=== PATIENT | female | born 1985 | race Caucasian/White ===

== ENCOUNTER 2022-01-11 19:24 | Inpatient (IN) | payer OTHER, SELFPAY ==
[2022-01-11 19:34] VITALS: BP 128/76; PULSE 83; O2SAT 97
--- NOTE | 2022-01-11 19:41 | ED_ITS ---
HPI - Psych General Chief Complaint: Psychiatric Symptoms Stated Complaint: SI Time Seen by Provider: 01/11/22 21:01 Source: patient and EMS Mode of arrival: EMS Limitations: no limitations History of Present Illness HPI Narrative: 36-year-old female presents via EMS for suicidal ideation. patient has had multiple stressors that have exacerbated her depression. Patient presented to Urgent Care and reported that she was suicidal and was transported to this facility via EMS for evaluation. MD complaint: suicidal ideation and feels depressed Onset (ago): unknown Duration: constant History of same: Yes (Has not presented to this facility in the past) Relieving factors: none Exacerbating factors: none Context: significant life stressor Associated psychiatric symptoms: depression and suicidal ideation Associated symptoms: denies other symptoms Treatments prior to arrival: none If self harm: admits thoughts of self harm and has plan Related Data Allergies Allergy/AdvReac Type Severity Reaction Status Date / Time No Known Allergies Allergy Verified 01/11/22 19:41 Review of Systems Review of Systems: Constitutional: No Fever, No Chills ENT/Mouth: No Ear Pain, No Nasal Congestion, No sore throat Eyes: No Eye Pain, No Swelling, No Redness Cardiovascular: No Chest Pain, No SOB Respiratory: No Cough, No Sputum, No Dyspnea Gastrointestinal: No Nausea, No Vomiting, No Diarrhea, No Hematochezia, No Melena Genitourinary: No Dysuria, No Urinary Frequency, No Hematuria Musculoskeletal: No Myalgias Skin: No Skin Lesions, No rash Neuro: No Weakness, No Numbness, No Paresthesias, No Dizziness, No Headache Psych: positive Anxiety, positive Depression, positive SI Heme/Lymph: No Lymphadenopathy Endocrine: No Polyuria, No Polydipsia Yes all other systems are reviewed and are negative [facility] Past Medical History Attestation statement: The following information was validated with the patient. Source: old records reviewed Social History Social History Advance Directives: No Patient : No Physical Exam Vital Signs: Vital Signs: Last Vital Signs Temp 97.6 F 01/11/22 19:56 Pulse 76 01/11/22 19:56 Resp 19 01/11/22 19:56 BP 149/91 H 01/11/22 19:56 Pulse Ox 100 01/11/22 19:56 BMI result Body Mass Index 40.8 Appearance: Alert. Oriented X3. Moderate emotional distress. Eyes: Pupils equal, round and reactive to light. Sclera nonicteric. ENT: Pharynx normal. Neck: Normal inspection. Neck supple. CVS: Normal heart rate and rhythm. Pulses normal. Respiratory: No respiratory distress. Breath sounds normal. Abdomen: Soft and nontender. Skin: Skin warm and dry. Normal skin color. Normal skin turgor. Extremities: No lower extremity edema. Gait well-balanced well coordinated. Neuro: No motor deficit. No sensory deficit. Cranial nerves 2-12 intact. Course Course Course Narrative: 36-year-old female presents via EMS for suicidal ideation. States that she feels overwhelmed with work, relationship complications, money, recently moved from [place] to [place]. Patient has not presented to this facility in the past, will order labs, crisis care team consult and COVID testing. 21:02 patient medically cleared. Care team consult and place. 22:17 patient will be section 12 bed search for suicidal ideation with multiple plans. Physician observation at this time. MDM - Psych Differential Diagnosis Differential diagnosis: Likely suicidal ideation, depression, acute anxiety, post-traumatic stress disorder and mood disorder Medical Records Attestation: I reviewed the patient's medical records. Lab Data Attestation: I reviewed the patient's lab results. Result diagrams: 01/11/22 20:20 01/11/22 20:20 Labs: Lab Results 01/11/22 01/11/22 01/11/22 Range/Units 20:01 20:01 20:01 WBC (4.8-10.8) X10*3/uL RBC (4.20-5.50) X10*6/uL Hgb (12.0-16.0) g/dl Hct (37.0-47.0) % MCV (80.0-98.0) fL MCH (27.0-33.0) pg MCHC (31.0-35.0) g/dl RDW (11.0-16.0) % Plt Count (160-400) X10*3/uL MPV (9.4-12.3) fL Immature Gran % (Auto) (0.0-0.4) % Neut % (Auto) (45-73) % Lymph % (Auto) (20-40) % Bonner % (Auto) (2-11) % Eos % (Auto) (0-4) % Baso % (Auto) (0-2) % Lymph # (Auto) (1.2-4.9) X10*3/uL Bonner # (Auto) (0.1-1.2) X10*3/uL Eos # (Auto) (0.0-0.4) X10*3/uL Baso # (Auto) (0.0-0.2) X10*3/uL Abs Immat Gran (auto) (0.00-0.03) X10*3/uL Absolute Neuts (auto) (2.0-8.3) x10*3/uL Absolute Nucleated RBC (0.0-0.012) X10*3/uL Nucleated RBC % (auto) (0.0-0.2) /100WBC Sodium (135-145) mmol/L Potassium (3.3-5.1) mmol/L Chloride (96-108) mmol/L Carbon Dioxide (22-29) mmol/L Anion Gap (12-20) BUN (9-16) mg/dL Creatinine (0.5-1.4) mg/dL Estim Creat Clear Calc Estimated GFR Random Glucose (60-115) mg/dL Calcium (8.4-10.2) mg/dL Total Bilirubin (0.0-1.0) mg/dL AST (5-31) U/L ALT (0-31) U/L Alkaline Phosphatase (39-117) U/L Total Protein (6.5-8.0) g/dL Albumin (3.5-5.0) g/dL Urine Test NEGATIVE (NEGATIVE) Urine Opiates Screen Not Detected (Not Detect) Urine Fentanyl Screen Not Detected (Not Detect) Ur Barbiturates Screen Not Detected (Not Detect) Ur Phencyclidine Scrn Not Detected (Not Detect) Ur Amphetamines Screen Not Detected (Not Detect) U Benzodiazepines Scrn Not Detected (Not Detect) Urine Cocaine Screen Not Detected (Not Detect) U Marijuana (THC) Screen Not Detected (Not Detect) Ethyl Alcohol mg/dL COVID-19 (JAIMEE) Negative (Negative) COVID-19 Clin Com See Note 01/11/22 01/11/22 01/11/22 Range/Units 20:20 20:20 20:20 WBC 13.2 H (4.8-10.8) X10*3/uL RBC 4.52 (4.20-5.50) X10*6/uL Hgb 13.8 (12.0-16.0) g/dl Hct 40.6 (37.0-47.0) % MCV 89.8 (80.0-98.0) fL MCH 30.5 (27.0-33.0) pg MCHC 34.0 (31.0-35.0) g/dl RDW 12.6 (11.0-16.0) % Plt Count 297 (160-400) X10*3/uL MPV 8.9 L (9.4-12.3) fL Immature Gran % (Auto) 0.7 H (0.0-0.4) % Neut % (Auto) 68.2 (45-73) % Lymph % (Auto) 23.7 (20-40) % Bonner % (Auto) 5.9 (2-11) % Eos % (Auto) 1.0 (0-4) % Baso % (Auto) 0.5 (0-2) % Lymph # (Auto) 3.1 (1.2-4.9) X10*3/uL Bonner # (Auto) 0.8 (0.1-1.2) X10*3/uL Eos # (Auto) 0.1 (0.0-0.4) X10*3/uL Baso # (Auto) 0.1 (0.0-0.2) X10*3/uL Abs Immat Gran (auto) 0.09 H (0.00-0.03) X10*3/uL Absolute Neuts (auto) 9.0 H (2.0-8.3) x10*3/uL Absolute Nucleated RBC 0.000 (0.0-0.012) X10*3/uL Nucleated RBC % (auto) 0.0 (0.0-0.2) /100WBC Sodium 139 (135-145) mmol/L Potassium 4.8 (3.3-5.1) mmol/L Chloride 102 (96-108) mmol/L Carbon Dioxide 28 (22-29) mmol/L Anion Gap 14 (12-20) BUN 7 L (9-16) mg/dL Creatinine 0.78 (0.5-1.4) mg/dL Estim Creat Clear Calc 112.0 Estimated GFR > 60 Random Glucose 93 (60-115) mg/dL Calcium 9.7 (8.4-10.2) mg/dL Total Bilirubin 0.6 (0.0-1.0) mg/dL AST 21 (5-31) U/L ALT 29 (0-31) U/L Alkaline Phosphatase 133 H (39-117) U/L Total Protein 7.3 (6.5-8.0) g/dL Albumin 4.1 (3.5-5.0) g/dL Urine Test (NEGATIVE) Urine Opiates Screen (Not Detect) Urine Fentanyl Screen (Not Detect) Ur Barbiturates Screen (Not Detect) Ur Phencyclidine Scrn (Not Detect) Ur Amphetamines Screen (Not Detect) U Benzodiazepines Scrn (Not Detect) Urine Cocaine Screen (Not Detect) U Marijuana (THC) Screen (Not Detect) Ethyl Alcohol < 10 mg/dL COVID-19 ([facility]IMEE) (Negative) COVID-19 Clin Com Discharge Plan Discharge Clinical Impression: Depressive disorder, Suicidal intent Patient Disposition: Still a Patient
[2022-01-11 19:56] VITALS: BP 149/91; PULSE 76; RESP 19; TEMP 36.4; O2SAT 100; BMI 40.8
[2022-01-11 20:18] LABS: UPreg QC Valid YES; Urine Pregnancy NEGATIVE (NEGATIVE)
[2022-01-11 20:22] LABS: Amphetamine Screen Urine Not Detected (Not Detect); Barbiturates, Urine Not Detected (Not Detect); Benzodiazepines Screen Urine Not Detected (Not Detect); Cannabinoid Screen Urine Not Detected (Not Detect); Cocaine Screen Urine Not Detected (Not Detect); Fentanyl, urine Not Detected (Not Detect); Opiate Screen Urine Not Detected (Not Detect); Phencyclidine Screen Urine Not Detected (Not Detect)
[2022-01-11 20:23] LABS: COVID-19 Test Negative (Negative)
[2022-01-11 20:24] LABS: MANUAL DIFF FLAG NO
[2022-01-11 20:27] LABS: Basophils Absolute Auto 0.1 X10*3/uL (0.0-0.2); Basophils Percent Auto 0.5 % (0-2); Eosinophils Absolute Auto 0.1 X10*3/uL (0.0-0.4); Hematocrit 40.6 % (37.0-47.0); Hemoglobin 13.8 g/dl (12.0-16.0); Imm Gran Abs Auto 0.09 X10*3/uL (0.00-0.03); Imm Gran Pct Auto 0.7 % (0.0-0.4); Lymphocytes Absolute Auto 3.1 X10*3/uL (1.2-4.9); Lymphocytes Percent Auto 23.7 % (20-40); Mean Corpuscular Hemoglobin 30.5 pg (27.0-33.0); Mean Corpuscular Volume 89.8 fL (80.0-98.0); Mean Platelet Volume 8.9 fL (9.4-12.3); Monocytes Absolute Auto 0.8 X10*3/uL (0.1-1.2); Monocytes Percent Auto 5.9 % (2-11); Neutrophils Percent Auto 68.2 % (45-73); Platelet Count 297 X10*3/uL (160-400); Red Blood Count 4.52 X10*6/uL (4.20-5.50); Red Cell Distribution Width 12.6 % (11.0-16.0); White Blood Count 13.2 X10*3/uL (4.8-10.8)
[2022-01-11 20:47] LABS: Ethanol < 10 mg/dL
[2022-01-11 20:52] LABS: Alanine Aminotransferase 29 U/L (0-31); Albumin Level 4.1 g/dL (3.5-5.0); Alkaline Phosphatase 133 U/L (39-117); Anion Gap 14 (12-20); Aspartate Amino Transferase 21 U/L (5-31); Bilirubin Total 0.6 mg/dL (0.0-1.0); Blood Urea Nitrogen 7 mg/dL (9-16); Calcium 9.7 mg/dL (8.4-10.2); Carbon Dioxide 28 mmol/L (22-29); Chloride 102 mmol/L (96-108); Estimated Glomerular Filt Rate > 60; Glucose Random 93 mg/dL (60-115); Potassium 4.8 mmol/L (3.3-5.1); Sodium 139 mmol/L (135-145); Total Protein 7.3 g/dL (6.5-8.0)
--- NOTE | 2022-01-11 22:10 | PC.NURSE ---
pt seen by care team.
--- NOTE | 2022-01-11 23:44 | MHC.CARE ---
Pt has been accepted for admission to on 01/12.
[2022-01-11] MEDS: Spironolactone 25 MG TABLET 50 MG PO (23:51)
[2022-01-11] MEDS: Gabapentin 100 MG CAPSULE 200 MG PO (23:51)
--- NOTE | 2022-01-12 | ECG_ITS ---
Test Reason : medical clearance Blood Pressure : / mmHG Vent. Rate : 081 BPM Atrial Rate : 081 BPM P-R Int : 142 ms QRS Dur : 082 ms QT Int : 384 ms P-R-T Axes : 043 013 042 degrees QTc Int : 446 ms Normal sinus rhythm Normal ECG No previous ECGs available Referred By: Audrey Rogders Electronically Signed By:Jabari Sinha
[2022-01-12 00:17] VITALS: BP 132/78; PULSE 78; RESP 17; TEMP 37.1; O2SAT 100
[2022-01-12] MEDS: SUMAtriptan succinate 25 MG TABLET PO (09:30)
[2022-01-12] MEDS: Hydroxychloroquine Sulfate 200 MG TABLET PO (09:30)
[2022-01-12] MEDS: Spironolactone 25 MG TABLET 50 MG PO ×2 (09:31→17:15)
[2022-01-12] MEDS: Gabapentin 100 MG CAPSULE 200 MG PO ×3 (09:31→20:20)
--- NOTE | 2022-01-12 11:28 | PHA.MEDREC ---
Pharmacy Consult ? Medication Reconciliation nurse has completed the medication reconciliation.
[2022-01-12] MEDS: DULoxetine HCl 30 MG CAPSULE.DR PO (11:36)
[2022-01-12 12:35] VITALS: BP 131/77; PULSE 90; RESP 18; TEMP 36.4; O2SAT 99
--- NOTE | 2022-01-12 15:47 | P.HPPS_ITS ---
HPI Date of Service: 01/12/22 Chief Complaint: SI Sources of Information: patient interviewed, chart reviewed and crisis/core team assessment reviewed HPI Subjective Notes: Conditional Voluntary Narrative: Ms. Barakat is a 36 year-old woman with hx of autoimmunune condition (lupus and sjorden) and MDD who initially presented to urgent care reporting increased depression, suicidal ideation and was transported on section 12 to [facility]. In the ED, Blank reports increased depression due to multiple stressors including stress at work complicated by physically feeling more fatigued and tired at work, recent argument with partner who lives in [place] and pt sees once a month. Utox was negative. On the unit, Ms. Barakat reports that she moved to [facility] for work leaving partner behind in [place] about one year ago. Maia reports she has struggled with depression on and off for several years. She reports one suicide attempt back in 2018 when in college but reports that she did not disclose to anyone. Pt reports although her father suffers from depression as well she grew up in family that does not believe in mental illness, where depression is seen as character flow and she is expected to snap out of it. 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 She reports to make matter worse her partner, Raheem came to visit her and they had an argument related to partner wanting to try cocaine. Pt endorses feeling worthless, hopeless, overwhelmed, lonely at times. She reports passive suicidal ideation but denies any plan or intent to hurt herself. Past Psychiatric History: Inpatient: none prior OP: none Past trials: gabapentin, cymbalta Suicide attempt: 2018 cutting wrist Medical Evaluation Reviewed: Yes Diagnostics Vital Signs (24Hr): Vital Signs - 24 hr 01/11/22 19:56 01/12/22 00:17 01/12/22 12:35 Temperature 97.6 F 98.7 F 97.5 F Pulse Rate 76 78 90 Respiratory Rate 19 17 18 Blood Pressure 149/91 H 132/78 131/77 Pulse Oximetry 100 100 99 BMI result Body Mass Index 40.8 Labs Results: 01/11/22 20:20 01/13/22 07:50 Labs: Laboratory Results - last 48 hr 01/11/22 01/11/22 01/11/22 20:01 20:01 20:01 WBC RBC Hgb Hct MCV MCH MCHC RDW Plt Count MPV Immature Gran % (Auto) Neut % (Auto) Lymph % (Auto) Stevens % (Auto) Eos % (Auto) Baso % (Auto) Lymph # (Auto) Stevens # (Auto) Eos # (Auto) Baso # (Auto) Abs Immat Gran (auto) Absolute Neuts (auto) Absolute Nucleated RBC Nucleated RBC % (auto) Sodium Potassium Chloride Carbon Dioxide Anion Gap BUN Creatinine Estim Creat Clear Calc Estimated GFR Random Glucose Calcium Total Bilirubin AST ALT Alkaline Phosphatase Total Protein Albumin Urine Test NEGATIVE Urine Opiates Screen Not Detected Urine Fentanyl Screen Not Detected Ur Barbiturates Screen Not Detected Ur Phencyclidine Scrn Not Detected Ur Amphetamines Screen Not Detected U Benzodiazepines Scrn Not Detected Urine Cocaine Screen Not Detected U Marijuana (THC) Screen Not Detected Ethyl Alcohol COVID-19 ([facility]IMEE) Negative COVID-19 Clin Com See Note 01/11/22 01/11/22 01/11/22 20:20 20:20 20:20 WBC 13.2 H RBC 4.52 Hgb 13.8 Hct 40.6 MCV 89.8 MCH 30.5 MCHC 34.0 RDW 12.6 Plt Count 297 MPV 8.9 L Immature Gran % (Auto) 0.7 H Neut % (Auto) 68.2 Lymph % (Auto) 23.7 Stevens % (Auto) 5.9 Eos % (Auto) 1.0 Baso % (Auto) 0.5 Lymph # (Auto) 3.1 Stevens # (Auto) 0.8 Eos # (Auto) 0.1 Baso # (Auto) 0.1 Abs Immat Gran (auto) 0.09 H Absolute Neuts (auto) 9.0 H Absolute Nucleated RBC 0.000 Nucleated RBC % (auto) 0.0 Sodium 139 Potassium 4.8 Chloride 102 Carbon Dioxide 28 Anion Gap 14 BUN 7 L Creatinine 0.78 Estim Creat Clear Calc 112.0 Estimated GFR > 60 Random Glucose 93 Calcium 9.7 Total Bilirubin 0.6 AST 21 ALT 29 Alkaline Phosphatase 133 H Total Protein 7.3 Albumin 4.1 Urine Test Urine Opiates Screen Urine Fentanyl Screen Ur Barbiturates Screen Ur Phencyclidine Scrn Ur Amphetamines Screen U Benzodiazepines Scrn Urine Cocaine Screen U Marijuana (THC) Screen Ethyl Alcohol < 10 COVID-19 ([facility]IMEE) COVID-19 Clin Com Meds/Allergies Meds Home Medications Acetaminophen (Acetaminophen 325 Mg Tablet) 650 mg PO Q6H PRN PRN Reason: Headache/Pain Mild Scale (1-3) Al Hydroxide/Mg Hydroxide (Magnesium Hydrox/Alum Hydrox 30 Ml Oral.Susp) 30 ml PO Q6H PRN PRN Reason: Heartburn/Nausea Artificial Tears (Artificial Tears 15 Ml Drops) 2 drop EYE-BOTH Q4H PRN PRN Reason: Dry Eyes Last Admin: 01/13/22 11:27 Dose: 2 drop Documented by: Ascorbic Acid (Ascorbic Acid 500 Mg Tablet) 500 mg PO DAILY COUNT INCLUDES THE [facility] Duloxetine HCl (Duloxetine Hcl 30 Mg Capsule.Dr) 90 mg PO DAILY COUNT INCLUDES THE [facility] Gabapentin (Gabapentin 100 Mg Capsule) 200 mg PO TID COUNT INCLUDES THE [facility] Last Admin: 01/13/22 10:15 Dose: 200 mg Documented by: Hydroxychloroquine Sulfate (Hydroxychloroquine Sulfate 200 Mg Tablet) 200 mg PO BEDTIME COUNT INCLUDES THE [facility] Last Admin: 01/12/22 21:57 Dose: Not Given Documented by: Hydroxyzine HCl (Hydroxyzine Hcl 25 Mg Tablet) 25 mg PO Q6H PRN PRN Reason: Anxiety Loratadine (Loratadine 10 Mg Tablet) 10 mg PO DAILY COUNT INCLUDES THE [facility] Lorazepam (Lorazepam 0.5 Mg Tablet) 0.5 mg PO Q4H PRN PRN Reason: Anxiety Magnesium Hydroxide (Milk Of Magnesia 30 Ml Oral.Susp) 30 ml PO DAILY PRN PRN Reason: Constipation Pt Med (Retaine Mgd) 1 each EYE-BOTH ONCE ONE Stop: 01/13/22 20:01 Ondansetron HCl (Ondansetron Odt 4 Mg Tab.Rapdis) 4 mg TRANSLINGU Q6H PRN PRN Reason: Nausea Spironolactone (Spironolactone 25 Mg Tablet) 50 mg PO BID@0900,1700 COUNT INCLUDES THE [facility]; Protocol Last Admin: 01/13/22 10:14 Dose: 50 mg Documented by: Sumatriptan Succinate (Sumatriptan Succinate 50 Mg Tablet) 50 mg PO DAILY MRX1 PRN PRN Reason: Migraine Headache Trazodone HCl (Trazodone Hcl 50 Mg Tablet) 50 mg PO BEDTIME COUNT INCLUDES THE [facility] Vitamin D (Cholecalciferol (Vitamin D3) 25 Mcg Tablet) 125 mcg PO DAILY COUNT INCLUDES THE [facility] Zinc Sulfate (Zinc Sulfate 220 Mg Capsule) 220 mg PO DAILY LYNDSEY Allergies Allergies Allergy/AdvReac Type Severity Reaction Status Date / Time dog dander Allergy Facial Verified 01/12/22 17:04 Swelling grass pollen AdvReac Sneezing Verified 01/12/22 17:04 latex AdvReac Rash Verified 01/11/22 22:39 mold AdvReac Sneezing Verified 01/12/22 17:04 raw tomat Allergy Intermediate Blister Uncoded 01/12/22 17:01 Mental Status Exam Mental Status Exam Narrative: Appearance: casually groomed, fair hygiene in NAD Behavior: cooperative psychomotor:no agitation or retardation noted Speech:clear, normal rate/rhythm/volume, spontaneous Thought process:linear Thought content:no signs of psychosis, overwhelmed by stressors Mood: overwhelmed Affect: congruent, tearful at times SI:passive HI:none VH/AH:none Delusions:none Insight/judgment:fair x 2. Memory/cog: alert, oriented x 3. grossly intact to conversational testing. Assessment & Plan Assessment & Plan (1) MDD (major depressive disorder), recurrent episode, moderate: Status: Acute Code(s): F33.1 - Major depressive disorder, recurrent, moderate Plan Ms. Barakat is a 36 year-old woman with hx of MDD, Lupus and Sjorden who was brought via EMS to [facility] ED after she went to urgent care reporting increase depression and suicidal ideation in context of multiple stressors including argument with partner, work related stress and fatigued due to medical conditions. This is her first inpatient psychiatric admission. We discussed risks, benefits and alternative treatment options. Pt agreed to increase cymbalta to 90mg po daily. PLAN 1. Admit to M3, CV, 15 min checks for safety 2. Increase cymbalta to 90mg po daily, ativan prn for anxiety. 3. Obtain collateral information 4. Aftercare planning. Patient educated on: diagnosis and medication risk/benefits Informed Consent: understands Reason for continued inpatient stay Substantial Risk for: harm to self
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
[2022-01-12] MEDS: traZODone HCL 50 MG TABLET PO (20:20)
[2022-01-12 21:14] VITALS: BP 120/69; PULSE 88; RESP 18; TEMP 36.6; O2SAT 99
[2022-01-13 07:00] VITALS: BMI 40.5
[2022-01-13] MEDS: Artificial Tears 15 ML DROPS 2 DROP EYE-BOTH ×3 (07:04→21:52)
[2022-01-13 09:01] LABS: Estimated Average Glucose 103 mg/dL; Hemoglobin A1c % 5.2 %
[2022-01-13 09:20] LABS: Alanine Aminotransferase 30 U/L (0-31); Albumin Level 4.1 g/dL (3.5-5.0); Alkaline Phosphatase 132 U/L (39-117); Anion Gap 15 (12-20); Aspartate Amino Transferase 19 U/L (5-31); Bilirubin Total 0.8 mg/dL (0.0-1.0); Blood Urea Nitrogen 13 mg/dL (9-16); Calcium 9.9 mg/dL (8.4-10.2); Carbon Dioxide 25 mmol/L (22-29); Chloride 102 mmol/L (96-108); Cholesterol 169 mg/dL; Creatinine Clr Calc Pharmacy 109.2; Estimated Glomerular Filt Rate > 60; Glucose Fasting 106 mg/dL (60-99); HDL Cholesterol 41 mg/dL; LDL Cholesterol Calculated 101 mg/dl; Potassium 4.7 mmol/L (3.3-5.1); Sodium 137 mmol/L (135-145); Total Protein 7.1 g/dL (6.5-8.0); Triglycerides 137 mg/dL
[2022-01-13 09:38] LABS: Thyroid Stimulating Hormone 0.93 uIU/mL (0.32-4.0)
[2022-01-13 09:56] LABS: Vitamin B12 > 2000 pg/mL (200-900)
[2022-01-13] MEDS: Spironolactone 25 MG TABLET 50 MG PO ×2 (10:14→16:24)
[2022-01-13] MEDS: Gabapentin 100 MG CAPSULE 200 MG PO ×3 (10:15→21:54)
[2022-01-13] MEDS: DULoxetine HCl 60 MG CAPSULE.DR PO (10:16)
[2022-01-13 10:20] VITALS: BP 111/77; PULSE 94; RESP 17; TEMP 36.6; O2SAT 100
--- NOTE | 2022-01-13 11:38 | HO.PSYCHPN ---
Subjective Subjective Date of Service: 01/13/22 Reason For Visit: SI Subjective Notes: Conditional Voluntary Interim History: Pt reports sleeping better last night, which was a concern she had prior to coming to hospital. She reports having migraine for which she takes triptan (also has neuro stimulator implanted). Pt reports feeling less overwhelmed but still very tearful, worried about current situation with work and her partner. Pt denies SI/HI. No VH/AH. light sensitivity s/s maye, went to few groups this morning but later went to her room to rest due to migraine. Medication Compliance: Yes Review of Systems Review of Systems Constitutional: No Fever, No Chills ENT/Mouth: No Ear Pain, No Nasal Congestion, No sore throat Eyes: No Eye Pain, No Swelling, No Redness Cardiovascular: No Chest Pain, No SOB Respiratory: No Cough, No Sputum, No Dyspnea Gastrointestinal: No Nausea, No Vomiting, No Diarrhea, No Hematochezia, No Melena Genitourinary: No Dysuria, No Urinary Frequency, No Hematuria Musculoskeletal: No Myalgias Skin: No Skin Lesions, No rash Neuro: No Weakness, No Numbness, No Paresthesias, No Dizziness, No Headache Psych: positive Anxiety, positive Depression, positive SI Heme/Lymph: No Lymphadenopathy Endocrine: No Polyuria, No Polydipsia Yes all other systems are reviewed and are negative Constitutional: Reports fatigue, Reports frequent falls and Reports lethargy Cardiovascular: Denies chest pain, Denies chest pain at rest, Denies syncope, Denies rapid heart rate, Denies lightheadedness, Denies dyspnea and Denies orthopnea Respiratory: Denies dyspnea Gastrointestinal: Denies constipation, Denies dyspepsia, Denies loose stools, Reports nausea (only with migraines) and Denies hematemesis Musculoskeletal: Reports arthralgias (knee pain) and Reports radiating pain into limb Denies syncope and Reports frequent falls Endocrine: Reports fatigue Mental Status Exam Mental Status Exam Narrative: Appearance: casually groomed, fair hygiene in NAD Behavior: cooperative psychomotor:no agitation or retardation noted Speech:clear, normal rate/rhythm/volume, spontaneous Thought process:linear Thought content:no signs of psychosis, overwhelmed by stressors Mood: overwhelmed Affect: congruent, tearful at times SI:passive HI:none VH/AH:none Delusions:none Insight/judgment:fair x 2. Memory/cog: alert, oriented x 3. grossly intact to conversational testing. Diagnostics Vital Signs (24Hr): Vital Signs - 24 hr 01/12/22 21:14 01/13/22 10:20 Temperature 97.9 F 98 F Pulse Rate 88 94 Respiratory Rate 18 17 Blood Pressure 120/69 111/77 Pulse Oximetry 99 100 BMI result Body Mass Index 40.5 Labs Results: 01/11/22 20:20 01/13/22 07:50 Labs: Laboratory Results - last 48 hr 01/11/22 01/11/22 01/11/22 20:01 20:01 20:01 WBC RBC Hgb Hct MCV MCH MCHC RDW Plt Count MPV Immature Gran % (Auto) Neut % (Auto) Lymph % (Auto) [place] % (Auto) Eos % (Auto) Baso % (Auto) Lymph # (Auto) [place] # (Auto) Eos # (Auto) Baso # (Auto) Abs Immat Gran (auto) Absolute Neuts (auto) Absolute Nucleated RBC Nucleated RBC % (auto) Sodium Potassium Chloride Carbon Dioxide Anion Gap BUN Creatinine Estim Creat Clear Calc Estimated GFR Random Glucose Fasting Glucose Estimat Average Glucose Hemoglobin A1c % Calcium Total Bilirubin AST ALT Alkaline Phosphatase Total Protein Albumin Triglycerides Cholesterol LDL Cholesterol, Calc HDL Cholesterol Vitamin B12 Folate TSH Urine Test NEGATIVE Urine Opiates Screen Not Detected Urine Fentanyl Screen Not Detected Ur Barbiturates Screen Not Detected Ur Phencyclidine Scrn Not Detected Ur Amphetamines Screen Not Detected U Benzodiazepines Scrn Not Detected Urine Cocaine Screen Not Detected U Marijuana (THC) Screen Not Detected Ethyl Alcohol COVID-19 ([facility]) Negative COVID-19 Clin Com See Note 01/11/22 01/11/22 01/11/22 20:20 20:20 20:20 WBC 13.2 H RBC 4.52 Hgb 13.8 Hct 40.6 MCV 89.8 MCH 30.5 MCHC 34.0 RDW 12.6 Plt Count 297 MPV 8.9 L Immature Gran % (Auto) 0.7 H Neut % (Auto) 68.2 Lymph % (Auto) 23.7 [place] % (Auto) 5.9 Eos % (Auto) 1.0 Baso % (Auto) 0.5 Lymph # (Auto) 3.1 [place] # (Auto) 0.8 Eos # (Auto) 0.1 Baso # (Auto) 0.1 Abs Immat Gran (auto) 0.09 H Absolute Neuts (auto) 9.0 H Absolute Nucleated RBC 0.000 Nucleated RBC % (auto) 0.0 Sodium 139 Potassium 4.8 Chloride 102 Carbon Dioxide 28 Anion Gap 14 BUN 7 L Creatinine 0.78 Estim Creat Clear Calc 112.0 Estimated GFR > 60 Random Glucose 93 Fasting Glucose Estimat Average Glucose Hemoglobin A1c % Calcium 9.7 Total Bilirubin 0.6 AST 21 ALT 29 Alkaline Phosphatase 133 H Total Protein 7.3 Albumin 4.1 Triglycerides Cholesterol LDL Cholesterol, Calc HDL Cholesterol Vitamin B12 Folate TSH Urine Test Urine Opiates Screen Urine Fentanyl Screen Ur Barbiturates Screen Ur Phencyclidine Scrn Ur Amphetamines Screen U Benzodiazepines Scrn Urine Cocaine Screen U Marijuana (THC) Screen Ethyl Alcohol < 10 COVID-19 ([facility]) COVID-19 [employer] 01/13/22 01/13/22 01/13/22 07:50 07:50 07:50 WBC RBC Hgb Hct MCV MCH MCHC RDW Plt Count MPV Immature Gran % (Auto) Neut % (Auto) Lymph % (Auto) [place] % (Auto) Eos % (Auto) Baso % (Auto) Lymph # (Auto) [place] # (Auto) Eos # (Auto) Baso # (Auto) Abs Immat Gran (auto) Absolute Neuts (auto) Absolute Nucleated RBC Nucleated RBC % (auto) Sodium 137 Potassium 4.7 Chloride 102 Carbon Dioxide 25 Anion Gap 15 BUN 13 D Creatinine 0.80 Estim Creat Clear Calc 109.2 Estimated GFR > 60 Random Glucose Fasting Glucose 106 H Estimat Average Glucose 103 Hemoglobin A1c % 5.2 Calcium 9.9 Total Bilirubin 0.8 AST 19 ALT 30 Alkaline Phosphatase 132 H Total Protein 7.1 Albumin 4.1 Triglycerides 137 Cholesterol 169 LDL Cholesterol, Calc 101 HDL Cholesterol 41 Vitamin B12 > 2000 H Folate 5.0 TSH 0.93 Urine Test Urine Opiates Screen Urine Fentanyl Screen Ur Barbiturates Screen Ur Phencyclidine Scrn Ur Amphetamines Screen U Benzodiazepines Scrn Urine Cocaine Screen U Marijuana (THC) Screen Ethyl Alcohol COVID-19 ([facility]) COVID-19 [employer] Medications Medications Current Medications Acetaminophen (Acetaminophen 325 Mg Tablet) 650 mg PO Q6H PRN PRN Reason: Headache/Pain Mild Scale (1-3) Al Hydroxide/Mg Hydroxide (Magnesium Hydrox/Alum Hydrox 30 Ml Oral.Susp) 30 ml PO Q6H PRN PRN Reason: Heartburn/Nausea Artificial Tears (Artificial Tears 15 Ml Drops) 2 drop EYE-BOTH Q4H PRN PRN Reason: Dry Eyes Last Admin: 01/13/22 11:27 Dose: 2 drop Documented by: Ascorbic Acid (Ascorbic Acid 500 Mg Tablet) 500 mg PO DAILY [facility] Duloxetine HCl (Duloxetine Hcl 30 Mg Capsule.Dr) 90 mg PO DAILY [facility] Gabapentin (Gabapentin 100 Mg Capsule) 200 mg PO TID [facility] Last Admin: 01/13/22 10:15 Dose: 200 mg Documented by: Hydroxychloroquine Sulfate (Hydroxychloroquine Sulfate 200 Mg Tablet) 200 mg PO BEDTIME [facility] Last Admin: 01/12/22 21:57 Dose: Not Given Documented by: Hydroxyzine HCl (Hydroxyzine Hcl 25 Mg Tablet) 25 mg PO Q6H PRN PRN Reason: Anxiety Loratadine (Loratadine 10 Mg Tablet) 10 mg PO DAILY [facility] Lorazepam (Lorazepam 0.5 Mg Tablet) 0.5 mg PO Q4H PRN PRN Reason: Anxiety Magnesium Hydroxide (Milk Of Magnesia 30 Ml Oral.Susp) 30 ml PO DAILY PRN PRN Reason: Constipation Pt Med (Retaine Mgd) 1 each EYE-BOTH ONCE ONE Stop: 01/13/22 20:01 Ondansetron HCl (Ondansetron Odt 4 Mg Tab.Rapdis) 4 mg TRANSLINGU Q6H PRN PRN Reason: Nausea Spironolactone (Spironolactone 25 Mg Tablet) 50 mg PO BID@0900,1700 [facility]; Protocol Last Admin: 01/13/22 10:14 Dose: 50 mg Documented by: Sumatriptan Succinate (Sumatriptan Succinate 50 Mg Tablet) 50 mg PO DAILY MRX1 PRN PRN Reason: Migraine Headache Trazodone HCl (Trazodone Hcl 50 Mg Tablet) 50 mg PO BEDTIME [facility] Vitamin D (Cholecalciferol (Vitamin D3) 25 Mcg Tablet) 125 mcg PO DAILY [facility] Zinc Sulfate (Zinc Sulfate 220 Mg Capsule) 220 mg PO DAILY [facility] Allergies Allergies Allergy/AdvReac Type Severity Reaction Status Date / Time dog dander Allergy Facial Verified 01/12/22 17:04 Swelling grass pollen AdvReac Sneezing Verified 01/12/22 17:04 latex AdvReac Rash Verified 01/11/22 22:39 mold AdvReac Sneezing Verified 01/12/22 17:04 raw tomat Allergy Intermediate Blister Uncoded 01/12/22 17:01 Assessment & Plan Assessment & Plan (1) MDD (major depressive disorder), recurrent episode, moderate: Status: Acute Code(s): F33.1 - Major depressive disorder, recurrent, moderate Plan Ms. Barakat is a 36 year-old woman with hx of MDD, Lupus and Sjorden who was brought via EMS to [facility] after she went to urgent care reporting increase depression and suicidal ideation in context of multiple stressors including argument with partner, work related stress and fatigued due to medical conditions. This is her first inpatient psychiatric admission. We discussed risks, benefits and alternative treatment options. Pt agreed to increase cymbalta to 90mg po daily. PLAN 1. Admit to M3, CV, 15 min checks for safety 2. Increase cymbalta to 90mg po daily, ativan prn for anxiety. 3. Obtain collateral information 4. Aftercare planning. 01/13- continue cymbalta 90 daily, trazodone 50mg po qhs, ativan prn. I spent __25____ minutes with the patient and/or on the patient floor today, greater than?50% of which was spent counseling/coordinating care. Reason for contiued inpatient stay Substantial Risk for: harm to self
[2022-01-13] MEDS: Loratadine 10 MG TABLET PO (15:25)
[2022-01-13] MEDS: Cholecalciferol (Vitamin D3) 25 MCG TABLET 125 MCG PO (15:26)
[2022-01-13] MEDS: Zinc Sulfate 220 MG CAPSULE PO (16:27)
[2022-01-13] MEDS: Ascorbic Acid 500 MG TABLET PO (16:27)
[2022-01-13] MEDS: Ondansetron ODT 4 MG TAB.RAPDIS TRANSLINGU (17:26)
[2022-01-13 21:40] VITALS: BP 93/61; PULSE 90; RESP 17; TEMP 36.7; O2SAT 97
[2022-01-13] MEDS: traZODone HCL 50 MG TABLET PO (21:54)
[2022-01-13] MEDS: Hydroxychloroquine Sulfate 200 MG TABLET PO (21:54)
[2022-01-14] MEDS: Artificial Tears 15 ML DROPS 2 DROP EYE-BOTH (02:38)
[2022-01-14 08:45] VITALS: BP 116/65; PULSE 103; RESP 16; TEMP 36.6; O2SAT 99
[2022-01-14] MEDS: Loratadine 10 MG TABLET PO (09:08)
[2022-01-14] MEDS: DULoxetine HCl 30 MG CAPSULE.DR 90 MG PO (09:08)
[2022-01-14] MEDS: Spironolactone 25 MG TABLET 50 MG PO ×2 (09:09→17:39)
[2022-01-14] MEDS: Cholecalciferol (Vitamin D3) 25 MCG TABLET 125 MCG PO (09:10)
[2022-01-14] MEDS: Gabapentin 100 MG CAPSULE 200 MG PO ×3 (09:10→20:13)
[2022-01-14] MEDS: Zinc Sulfate 220 MG CAPSULE PO (09:10)
[2022-01-14] MEDS: Ascorbic Acid 500 MG TABLET PO (09:10)
[2022-01-14] MEDS: Ondansetron ODT 4 MG TAB.RAPDIS TRANSLINGU ×2 (12:29→20:14)
[2022-01-14] MEDS: SUMAtriptan succinate 50 MG TABLET PO (14:01)
--- NOTE | 2022-01-14 14:31 | HO.PSYCHPN ---
Subjective Subjective Date of Service: 01/14/22 Reason For Visit: SI Subjective Notes: Conditional Voluntary Interim History: Pt with brighter affect. She reports she slept well. She has had more migraines and light bothers her but overall feeling less overwhelmed. She denies SI/HI. She hopes to be discharged next Monday. Pt has been visible in the unit, has attended assigned groups- tolerating increase in cymbalta for depression. Medication Compliance: Yes Side effects from medications: No Review of Systems Review of Systems Constitutional: No Fever, No Chills ENT/Mouth: No Ear Pain, No Nasal Congestion, No sore throat Eyes: No Eye Pain, No Swelling, No Redness Cardiovascular: No Chest Pain, No SOB Respiratory: No Cough, No Sputum, No Dyspnea Gastrointestinal: No Nausea, No Vomiting, No Diarrhea, No Hematochezia, No Melena Genitourinary: No Dysuria, No Urinary Frequency, No Hematuria Musculoskeletal: No Myalgias Skin: No Skin Lesions, No rash Neuro: No Weakness, No Numbness, No Paresthesias, No Dizziness, No Headache Psych: positive Anxiety, positive Depression, positive SI Heme/Lymph: No Lymphadenopathy Endocrine: No Polyuria, No Polydipsia Yes all other systems are reviewed and are negative Constitutional: Reports fatigue, Reports frequent falls and Reports lethargy Cardiovascular: Denies chest pain, Denies chest pain at rest, Denies syncope, Denies rapid heart rate, Denies lightheadedness, Denies dyspnea and Denies orthopnea Respiratory: Denies dyspnea Gastrointestinal: Denies constipation, Denies dyspepsia, Denies loose stools, Reports nausea (only with migraines) and Denies hematemesis Musculoskeletal: Reports arthralgias (knee pain) and Reports radiating pain into limb Denies syncope and Reports frequent falls Endocrine: Reports fatigue Mental Status Exam Mental Status Exam Narrative: Appearance: casually groomed, fair hygiene in NAD Behavior: cooperative psychomotor:no agitation or retardation noted Speech:clear, normal rate/rhythm/volume, spontaneous Thought process:linear Thought content:no signs of psychosis, overwhelmed by stressors Mood: overwhelmed Affect: congruent, tearful at times SI:passive HI:none VH/AH:none Delusions:none Insight/judgment:fair x 2. Memory/cog: alert, oriented x 3. grossly intact to conversational testing. Diagnostics Vital Signs (24Hr): Vital Signs - 24 hr 01/13/22 21:40 01/14/22 08:45 Temperature 98.1 F 97.9 F Pulse Rate 90 103 H Respiratory Rate 17 16 Blood Pressure 93/61 116/65 Pulse Oximetry 97 99 BMI result Body Mass Index 40.5 Labs Results: 01/11/22 20:20 01/13/22 07:50 Labs: Laboratory Results - last 48 hr 01/13/22 01/13/22 01/13/22 07:50 07:50 07:50 Sodium 137 Potassium 4.7 Chloride 102 Carbon Dioxide 25 Anion Gap 15 BUN 13 D Creatinine 0.80 Estim Creat Clear Calc 109.2 Estimated GFR > 60 Fasting Glucose 106 H Estimat Average Glucose 103 Hemoglobin A1c % 5.2 Calcium 9.9 Total Bilirubin 0.8 AST 19 ALT 30 Alkaline Phosphatase 132 H Total Protein 7.1 Albumin 4.1 Triglycerides 137 Cholesterol 169 LDL Cholesterol, Calc 101 HDL Cholesterol 41 Vitamin B12 > 2000 H Folate 5.0 TSH 0.93 Medications Medications Current Medications Acetaminophen (Acetaminophen 325 Mg Tablet) 650 mg PO Q6H PRN PRN Reason: Headache/Pain Mild Scale (1-3) Al Hydroxide/Mg Hydroxide (Magnesium Hydrox/Alum Hydrox 30 Ml Oral.Susp) 30 ml PO Q6H PRN PRN Reason: Heartburn/Nausea Artificial Tears (Artificial Tears 15 Ml Drops) 2 drop EYE-BOTH Q4H PRN PRN Reason: Dry Eyes Last Admin: 01/14/22 02:38 Dose: 2 drop Documented by: Ascorbic Acid (Ascorbic Acid 500 Mg Tablet) 500 mg PO DAILY [facility] Last Admin: 01/14/22 09:10 Dose: 500 mg Documented by: Duloxetine HCl (Duloxetine Hcl 30 Mg Capsule.Dr) 90 mg PO DAILY [facility] Last Admin: 01/14/22 09:08 Dose: 90 mg Documented by: Gabapentin (Gabapentin 100 Mg Capsule) 200 mg PO TID [facility] Last Admin: 01/14/22 14:02 Dose: 200 mg Documented by: Hydroxychloroquine Sulfate (Hydroxychloroquine Sulfate 200 Mg Tablet) 200 mg PO BEDTIME [facility] Last Admin: 01/13/22 21:54 Dose: 200 mg Documented by: Hydroxyzine HCl (Hydroxyzine Hcl 25 Mg Tablet) 25 mg PO Q6H PRN PRN Reason: Anxiety Loratadine (Loratadine 10 Mg Tablet) 10 mg PO DAILY [facility] Last Admin: 01/14/22 09:08 Dose: 10 mg Documented by: Lorazepam (Lorazepam 0.5 Mg Tablet) 0.5 mg PO Q4H PRN PRN Reason: Anxiety Magnesium Hydroxide (Milk Of Magnesia 30 Ml Oral.Susp) 30 ml PO DAILY PRN PRN Reason: Constipation Ondansetron HCl (Ondansetron Odt 4 Mg Tab.Rapdis) 4 mg TRANSLINGU Q6H PRN PRN Reason: Nausea Last Admin: 01/14/22 12:29 Dose: 4 mg Documented by: Spironolactone (Spironolactone 25 Mg Tablet) 50 mg PO BID@0900,1700 [facility]; Protocol Last Admin: 01/14/22 09:09 Dose: 50 mg Documented by: Sumatriptan Succinate (Sumatriptan Succinate 50 Mg Tablet) 50 mg PO DAILY MRX1 PRN PRN Reason: Migraine Headache Last Admin: 01/14/22 14:01 Dose: 50 mg Documented by: Trazodone HCl (Trazodone Hcl 50 Mg Tablet) 50 mg PO BEDTIME [facility] Last Admin: 01/13/22 21:54 Dose: 50 mg Documented by: Vitamin D (Cholecalciferol (Vitamin D3) 25 Mcg Tablet) 125 mcg PO DAILY [facility] Last Admin: 01/14/22 09:10 Dose: 125 mcg Documented by: Zinc Sulfate (Zinc Sulfate 220 Mg Capsule) 220 mg PO DAILY [facility] Last Admin: 01/14/22 09:10 Dose: 220 mg Documented by: Allergies Allergies Allergy/AdvReac Type Severity Reaction Status Date / Time dog dander Allergy Facial Verified 01/12/22 17:04 Swelling grass pollen AdvReac Sneezing Verified 01/12/22 17:04 latex AdvReac Rash Verified 01/11/22 22:39 mold AdvReac Sneezing Verified 01/12/22 17:04 raw tomat Allergy Intermediate Blister Uncoded 01/12/22 17:01 Assessment & Plan Assessment & Plan (1) MDD (major depressive disorder), recurrent episode, moderate: Status: Acute Code(s): F33.1 - Major depressive disorder, recurrent, moderate Plan Ms. Barakat is a 36 year-old woman with hx of MDD, Lupus and Sjorden who was brought via EMS to [facility] after she went to urgent care reporting increase depression and suicidal ideation in context of multiple stressors including argument with partner, work related stress and fatigued due to medical conditions. This is her first inpatient psychiatric admission. We discussed risks, benefits and alternative treatment options. Pt agreed to increase cymbalta to 90mg po daily. PLAN 1. Admit to M3, CV, 15 min checks for safety 2. Increase cymbalta to 90mg po daily, ativan prn for anxiety. 3. Obtain collateral information 4. Aftercare planning. 01/13- continue cymbalta 90 daily, trazodone 50mg po qhs, ativan prn. 01/14 continue current medications, d/c for 01/18. I spent ___25___ minutes with the patient and/or on the patient floor today, greater than?50% of which was spent counseling/coordinating care. Reason for contiued inpatient stay Substantial Risk for: harm to self
--- NOTE | 2022-01-14 15:56 | MHC.CLN ---
NUTRITION CONSULT TO DISCUSS DIET FOR MIGRAINES AND AUTO IMMUNE DISORDER. VISITED PATIENT IN HER ROOM. VERY RECEPTIVE AND ENGAGED IN CONVERSATION. PROVIDED HANDOUT GENERAL, HEALTHFUL NUTRITION THERAPY . EXPLAINED THAT HANDOUTS ARE FROM PROF[employer] AND NO SPECIFICS PROVIDED FOR MIGRAINES AND AUTO IMMUNE/ANTI-INFLAMMATORY FOODS. PATIENT AVOIDS NITRATES, MSG, AND RAW TOMATOES. DISCUSSED MENU CHOICES. APPEARED SATISFIED WITH CONVERSATION AND ABLE TO MAKE OWN FOOD CHOICES. KITCHEN AWARE OF RAW TOMATO ALLERGY.
[2022-01-14 17:35] VITALS: BP 127/61; PULSE 80
[2022-01-14 18:00] VITALS: BP 117/58; PULSE 90; RESP 17; TEMP 36.6; O2SAT 94
[2022-01-14] MEDS: traZODone HCL 50 MG TABLET PO (20:13)
[2022-01-14] MEDS: Hydroxychloroquine Sulfate 200 MG TABLET PO (20:13)
[2022-01-15 08:45] VITALS: BP 121/66; PULSE 101; RESP 16; TEMP 36.7; O2SAT 97
[2022-01-15] MEDS: Gabapentin 100 MG CAPSULE 200 MG PO ×3 (08:53→21:02)
[2022-01-15] MEDS: DULoxetine HCl 30 MG CAPSULE.DR 90 MG PO (08:53)
[2022-01-15] MEDS: Zinc Sulfate 220 MG CAPSULE PO (08:54)
[2022-01-15] MEDS: Ascorbic Acid 500 MG TABLET PO (08:54)
[2022-01-15] MEDS: Spironolactone 25 MG TABLET 50 MG PO ×2 (08:54→17:51)
[2022-01-15] MEDS: Loratadine 10 MG TABLET PO (08:55)
[2022-01-15] MEDS: Cholecalciferol (Vitamin D3) 25 MCG TABLET 125 MCG PO (08:57)
--- NOTE | 2022-01-15 09:18 | P.PNPSI_ITS ---
Subjective Subjective Date of Service: 01/15/22 Reason For Visit: SI Subjective Notes: Conditional Voluntary Healthcare Proxy: No Guardianship: No Medical Problems Affecting Mental Status: Yes (Migraines,) Interim History: Patient was seen and discussed in rounds today. Records and plans were reviewed. She has been visible, attending groups. Note to suicidal ideations but fleeting thoughts of . She continues to feel depressed with flat affect. She also states that the Zofran has not been effective for her nausea which she gets in association with her migraines and would like to be switched to Phenergan which I ordered at 25 mg q.6 hours p.r.n.. She also has been constipated and Colace 100 mg b.i.d. was ordered. No other changes were made today Review of Systems Review of Systems Except for headaches and constipation nausea Yes all other systems are reviewed and are negative Diagnostics Vital Signs (24Hr): Vital Signs - 24 hr 01/14/22 17:35 01/14/22 18:00 01/15/22 08:45 Temperature 97.9 F 98.1 F Pulse Rate 80 90 101 H Respiratory Rate 17 16 Blood Pressure 127/61 117/58 L 121/66 Pulse Oximetry 94 97 BMI result Body Mass Index 40.5 Labs Results: 01/11/22 20:20 01/13/22 07:50 Labs: Laboratory Results - last 48 hr 01/13/22 01/13/22 07:50 07:50 Sodium 137 Potassium 4.7 Chloride 102 Carbon Dioxide 25 Anion Gap 15 BUN 13 D Creatinine 0.80 Estim Creat Clear Calc 109.2 Estimated GFR > 60 Fasting Glucose 106 H Calcium 9.9 Total Bilirubin 0.8 AST 19 ALT 30 Alkaline Phosphatase 132 H Total Protein 7.1 Albumin 4.1 Triglycerides 137 Cholesterol 169 LDL Cholesterol, Calc 101 HDL Cholesterol 41 Vitamin B12 > 2000 H Folate 5.0 TSH 0.93 Medications Medications Current Medications Acetaminophen (Acetaminophen 325 Mg Tablet) 650 mg PO Q6H PRN PRN Reason: Headache/Pain Mild Scale (1-3) Al Hydroxide/Mg Hydroxide (Magnesium Hydrox/Alum Hydrox 30 Ml Oral.Susp) 30 ml PO Q6H PRN PRN Reason: Heartburn/Nausea Artificial Tears (Artificial Tears 15 Ml Drops) 2 drop EYE-BOTH Q4H PRN PRN Reason: Dry Eyes Last Admin: 01/14/22 02:38 Dose: 2 drop Documented by: Ascorbic Acid (Ascorbic Acid 500 Mg Tablet) 500 mg PO DAILY [facility] Last Admin: 01/15/22 08:54 Dose: 500 mg Documented by: Docusate Sodium (Docusate Sodium 100 Mg Capsule) 100 mg PO BID [facility] Duloxetine HCl (Duloxetine Hcl 30 Mg Capsule.Dr) 90 mg PO DAILY [facility] Last Admin: 01/15/22 08:53 Dose: 90 mg Documented by: Gabapentin (Gabapentin 100 Mg Capsule) 200 mg PO TID [facility] Last Admin: 01/15/22 08:53 Dose: 200 mg Documented by: Hydroxychloroquine Sulfate (Hydroxychloroquine Sulfate 200 Mg Tablet) 200 mg PO BEDTIME [facility] Last Admin: 01/14/22 20:13 Dose: 200 mg Documented by: Hydroxyzine HCl (Hydroxyzine Hcl 25 Mg Tablet) 25 mg PO Q6H PRN PRN Reason: Anxiety Ibuprofen (Ibuprofen 800 Mg Tablet) 800 mg PO Q8H PRN PRN Reason: Pain, Moderate (Pain Scale 4-6 Loratadine (Loratadine 10 Mg Tablet) 10 mg PO DAILY [facility] Last Admin: 01/15/22 08:55 Dose: 10 mg Documented by: Lorazepam (Lorazepam 0.5 Mg Tablet) 0.5 mg PO Q4H PRN PRN Reason: Anxiety Magnesium Hydroxide (Milk Of Magnesia 30 Ml Oral.Susp) 30 ml PO DAILY PRN PRN Reason: Constipation Promethazine HCl (Promethazine Hcl 25 Mg Tablet) 25 mg PO Q6H PRN PRN Reason: Nausea Spironolactone (Spironolactone 25 Mg Tablet) 50 mg PO BID@0900,1700 [facility]; Protocol Last Admin: 01/15/22 08:54 Dose: 50 mg Documented by: Sumatriptan Succinate (Sumatriptan Succinate 50 Mg Tablet) 50 mg PO DAILY MRX1 PRN PRN Reason: Migraine Headache Last Admin: 01/14/22 14:01 Dose: 50 mg Documented by: Trazodone HCl (Trazodone Hcl 50 Mg Tablet) 50 mg PO BEDTIME [facility] Last Admin: 01/14/22 20:13 Dose: 50 mg Documented by: Vitamin D (Cholecalciferol (Vitamin D3) 25 Mcg Tablet) 125 mcg PO DAILY [facility] Last Admin: 01/15/22 08:57 Dose: 125 mcg Documented by: Zinc Sulfate (Zinc Sulfate 220 Mg Capsule) 220 mg PO DAILY [facility] Last Admin: 01/15/22 08:54 Dose: 220 mg Documented by: Allergies Allergies Allergy/AdvReac Type Severity Reaction Status Date / Time dog dander Allergy Facial Verified 01/12/22 17:04 Swelling grass pollen AdvReac Sneezing Verified 01/12/22 17:04 latex AdvReac Rash Verified 01/11/22 22:39 mold AdvReac Sneezing Verified 01/12/22 17:04 raw tomat Allergy Intermediate Blister Uncoded 01/12/22 17:01 Assessment & Plan Assessment & Plan (1) MDD (major depressive disorder), recurrent episode, moderate: Status: Acute Code(s): F33.1 - Major depressive disorder, recurrent, moderate Plan Ms. Barakat is a 36 year-old woman with hx of MDD, Lupus and Sjorden who was brought via EMS to [facility] after she went to urgent care reporting increase depression and suicidal ideation in context of multiple stressors including argument with partner, work related stress and fatigued due to medical conditions. This is her first inpatient psychiatric admission. We discussed risks, benefits and alternative treatment options. Pt agreed to increase cymbalta to 90mg po daily. PLAN 1. Admit to M3, CV, 15 min checks for safety 2. Increase cymbalta to 90mg po daily, ativan prn for anxiety. 3. Obtain collateral information 4. Aftercare planning. 01/13- continue cymbalta 90 daily, trazodone 50mg po qhs, ativan prn. 01/14 continue current medications, d/c for 01/18. 01/15: Continue current regimen with discontinuation of Zofran and a trial of Phenergan and starting Colace I spent minutes with the patient and/or on the patient floor today, greater than?50% of which was spent counseling/coordinating care. Patient educated on: medication risk/benefits Reason for contiued inpatient stay Substantial Risk for: med/psych decompensation
[2022-01-15] MEDS: Milk of Magnesia 30 ML ORAL.SUSP PO (09:21)
[2022-01-15] MEDS: Docusate Sodium 100 MG CAPSULE PO ×2 (10:41→21:02)
[2022-01-15] MEDS: Promethazine HCL 25 MG TABLET PO (15:45)
[2022-01-15 18:00] VITALS: BP 109/65; PULSE 80; RESP 16; TEMP 36.6; O2SAT 98
[2022-01-15] MEDS: traZODone HCL 50 MG TABLET PO (21:02)
[2022-01-15] MEDS: Hydroxychloroquine Sulfate 200 MG TABLET PO (21:02)
[2022-01-16] MEDS: Artificial Tears 15 ML DROPS 2 DROP EYE-BOTH ×2 (02:23→22:08)
[2022-01-16] MEDS: Loratadine 10 MG TABLET PO (08:44)
[2022-01-16 08:45] VITALS: BP 117/64; PULSE 85; RESP 16; TEMP 36.4; O2SAT 98
[2022-01-16] MEDS: DULoxetine HCl 30 MG CAPSULE.DR 90 MG PO (08:45)
[2022-01-16] MEDS: Ascorbic Acid 500 MG TABLET PO (08:45)
[2022-01-16] MEDS: Spironolactone 25 MG TABLET 50 MG PO ×2 (08:45→16:07)
[2022-01-16] MEDS: Gabapentin 100 MG CAPSULE 200 MG PO ×3 (08:45→22:02)
[2022-01-16] MEDS: Docusate Sodium 100 MG CAPSULE PO ×2 (08:45→22:02)
[2022-01-16] MEDS: Zinc Sulfate 220 MG CAPSULE PO (08:46)
[2022-01-16] MEDS: Cholecalciferol (Vitamin D3) 25 MCG TABLET 125 MCG PO (08:52)
--- NOTE | 2022-01-16 09:11 | PC.NURSE ---
Maia reported to RN chest tightness 12/09. No associated diaphoresis, shortness of breath or radiation. Dr Kaur informed. No further orders. Patient was educated about s/s to report to nursing and verbalized understanding. Vital signs are stable.
[2022-01-16] MEDS: Magnesium Citrate 300 ML SOLUTION PO (09:20)
--- NOTE | 2022-01-16 10:15 | HO.PSYCHPN ---
Subjective Subjective Date of Service: 01/16/22 Reason For Visit: SI Subjective Notes: Conditional Voluntary Interim History: Patient was seen and discussed in rounds today. She has been mostly visible and doing better. Continues to have some anxiety and depression. Eating and sleeping okay. She states that her nausea is much better with the medication change 2 promethazine. She continues to be constipated and took Mag citrate today. No other changes today Review of Systems Review of Systems Constipation Yes all other systems are reviewed and are negative Mental Status Exam Mental Status Exam Narrative: In today's visit she is alert, oriented and pleasant. Normal speech. Good eye contact. Affect is appropriate and varied. Moderate anxiety and dysphoria present. No signs of psychosis. No SI. Cognitively intact. Judgment is intact Diagnostics Vital Signs (24Hr): Vital Signs - 24 hr 01/15/22 18:00 01/16/22 08:45 Temperature 97.9 F 97.6 F Pulse Rate 80 85 Respiratory Rate 16 16 Blood Pressure 109/65 117/64 Pulse Oximetry 98 98 BMI result Body Mass Index 40.5 Labs Results: 01/11/22 20:20 01/13/22 07:50 Medications Medications Current Medications Acetaminophen (Acetaminophen 325 Mg Tablet) 650 mg PO Q6H PRN PRN Reason: Headache/Pain Mild Scale (1-3) Al Hydroxide/Mg Hydroxide (Magnesium Hydrox/Alum Hydrox 30 Ml Oral.Susp) 30 ml PO Q6H PRN PRN Reason: Heartburn/Nausea Artificial Tears (Artificial Tears 15 Ml Drops) 2 drop EYE-BOTH Q4H PRN PRN Reason: Dry Eyes Last Admin: 01/16/22 02:23 Dose: 2 drop Documented by: Ascorbic Acid (Ascorbic Acid 500 Mg Tablet) 500 mg PO DAILY [facility] Last Admin: 01/16/22 08:45 Dose: 500 mg Documented by: Docusate Sodium (Docusate Sodium 100 Mg Capsule) 100 mg PO BID [facility] Last Admin: 01/16/22 08:45 Dose: 100 mg Documented by: Duloxetine HCl (Duloxetine Hcl 30 Mg Capsule.) 90 mg PO DAILY [facility] Last Admin: 01/16/22 08:45 Dose: 90 mg Documented by: Gabapentin (Gabapentin 100 Mg Capsule) 200 mg PO TID [facility] Last Admin: 01/16/22 08:45 Dose: 200 mg Documented by: Hydroxychloroquine Sulfate (Hydroxychloroquine Sulfate 200 Mg Tablet) 200 mg PO BEDTIME [facility] Last Admin: 01/15/22 21:02 Dose: 200 mg Documented by: Hydroxyzine HCl (Hydroxyzine Hcl 25 Mg Tablet) 25 mg PO Q6H PRN PRN Reason: Anxiety Ibuprofen (Ibuprofen 800 Mg Tablet) 800 mg PO Q8H PRN PRN Reason: Pain, Moderate (Pain Scale 4-6 Loratadine (Loratadine 10 Mg Tablet) 10 mg PO DAILY [facility] Last Admin: 01/16/22 08:44 Dose: 10 mg Documented by: Lorazepam (Lorazepam 0.5 Mg Tablet) 0.5 mg PO Q4H PRN PRN Reason: Anxiety Magnesium Hydroxide (Milk Of Magnesia 30 Ml Oral.Susp) 30 ml PO DAILY PRN PRN Reason: Constipation Last Admin: 01/15/22 09:21 Dose: 30 ml Documented by: Patient Own Medication ( Monolaurin 500 Mg) 2 each PO BID [facility] Last Admin: 01/16/22 08:44 Dose: 2 each Documented by: Patient Own Medication (Milk Thistle 175 Mg) 2 each PO BID [facility] Last Admin: 01/16/22 08:44 Dose: 2 each Documented by: Promethazine HCl (Promethazine Hcl 25 Mg Tablet) 25 mg PO Q6H PRN PRN Reason: Nausea Last Admin: 01/15/22 15:45 Dose: 25 mg Documented by: Spironolactone (Spironolactone 25 Mg Tablet) 50 mg PO BID@0900,1700 [facility]; Protocol Last Admin: 01/16/22 08:45 Dose: 50 mg Documented by: Sumatriptan Succinate (Sumatriptan Succinate 50 Mg Tablet) 50 mg PO DAILY MRX1 PRN PRN Reason: Migraine Headache Last Admin: 01/14/22 14:01 Dose: 50 mg Documented by: Trazodone HCl (Trazodone Hcl 50 Mg Tablet) 50 mg PO BEDTIME [facility] Last Admin: 01/15/22 21:02 Dose: 50 mg Documented by: Vitamin D (Cholecalciferol (Vitamin D3) 25 Mcg Tablet) 125 mcg PO DAILY [facility] Last Admin: 01/16/22 08:52 Dose: 125 mcg Documented by: Zinc Sulfate (Zinc Sulfate 220 Mg Capsule) 220 mg PO DAILY [facility] Last Admin: 01/16/22 08:46 Dose: 220 mg Documented by: Allergies Allergies Allergy/AdvReac Type Severity Reaction Status Date / Time dog dander Allergy Facial Verified 01/12/22 17:04 Swelling grass pollen AdvReac Sneezing Verified 01/12/22 17:04 latex AdvReac Rash Verified 01/11/22 22:39 mold AdvReac Sneezing Verified 01/12/22 17:04 raw tomat Allergy Intermediate Blister Uncoded 01/12/22 17:01 Assessment & Plan Assessment & Plan (1) MDD (major depressive disorder), recurrent episode, moderate: Status: Acute Code(s): F33.1 - Major depressive disorder, recurrent, moderate Plan Ms. Barakat is a 36 year-old woman with hx of MDD, Lupus and Sjorden who was brought via EMS [place] [facility] after she went to urgent care reporting increase depression and suicidal ideation in context of multiple stressors including argument with partner, work related stress and fatigued due to medical conditions. This is her first inpatient psychiatric admission. We discussed risks, benefits and alternative treatment options. Pt agreed to increase cymbalta to 90mg po daily. PLAN 1. Admit to M3, CV, 15 min checks for safety 2. Increase cymbalta to 90mg po daily, ativan prn for anxiety. 3. Obtain collateral information 4. Aftercare planning. 01/13- continue cymbalta 90 daily, trazodone 50mg po qhs, ativan prn. 01/14 continue current medications, d/c for 01/18. 01/15: Continue current regimen with discontinuation of Zofran and a trial of Phenergan and starting Colace 01/16: Continue current regimen and plans. Attempting to address constipation more aggressively I spent minutes with the patient and/or on the patient floor today, greater than?50% of which was spent counseling/coordinating care. Patient educated on: medication risk/benefits Reason for contiued inpatient stay Substantial Risk for: other
[2022-01-16 22:00] VITALS: BP 114/71; PULSE 94; RESP 18; TEMP 36.7; O2SAT 99
[2022-01-16] MEDS: Hydroxychloroquine Sulfate 200 MG TABLET PO (22:03)
[2022-01-16] MEDS: traZODone HCL 50 MG TABLET PO (22:03)
[2022-01-16] MEDS: LORazepam 0.5 MG TABLET PO (22:03)
[2022-01-16] MEDS: hydrOXYzine HCL 25 MG TABLET PO (22:03)
[2022-01-17] MEDS: Cholecalciferol (Vitamin D3) 25 MCG TABLET 125 MCG PO (07:59)
[2022-01-17 08:00] VITALS: BP 116/60; PULSE 82; RESP 16; TEMP 36.6; O2SAT 98
[2022-01-17] MEDS: Spironolactone 25 MG TABLET 50 MG PO ×2 (08:00→16:11)
[2022-01-17] MEDS: Zinc Sulfate 220 MG CAPSULE PO (08:00)
[2022-01-17] MEDS: Gabapentin 100 MG CAPSULE 200 MG PO ×3 (08:00→22:37)
[2022-01-17] MEDS: Docusate Sodium 100 MG CAPSULE PO ×2 (08:00→22:37)
[2022-01-17] MEDS: Ascorbic Acid 500 MG TABLET PO (08:00)
[2022-01-17] MEDS: DULoxetine HCl 30 MG CAPSULE.DR 90 MG PO (08:00)
[2022-01-17] MEDS: Loratadine 10 MG TABLET PO (08:00)
--- NOTE | 2022-01-17 16:10 | HO.PSYCHPN ---
Subjective Subjective Date of Service: 01/17/22 Reason For Visit: SI Interim History: Patient reports that she has a little better and she feels that trazodone has been helping her sleep. She says she did not have any nightmares last night. Patient continues to have bad anxiety but says they hydroxyzine and Ativan have been helping. Today she denies any overwhelming urges to self-harm which she attributes to pushing herself to stay busy coloring and sitting in the milieu. Discussed medications and treatment and since patient's Duloxetine was recently increased, she agrees to continue with current medication regimen to see if it continues to provide increased benefit Mental Status Exam Mental Status Exam Narrative: Pt is alert and oriented; behavior is cooperative, friendly; patient is not in distress; dressed in casual attire with adequate hygiene; mood is described as better though affect anxious; minimal eye contact; Speech is normal rate, volume and prosody and not pressured; no psychomotor agitation/retardation present; thought process is organized and goal directed; Thought content is on tx; otherwise pertinent to relevant topics and without any delusional content, paranoid ideations or grandiosity; denies any SI/HI; intermittent urges to superficially self harm. There is no evidence of perceptual disturbance. Patients insight and judgment are impaired. Diagnostics Vital Signs (24Hr): Vital Signs - 24 hr 01/16/22 22:00 01/17/22 08:00 Temperature 98.0 F 97.9 F Pulse Rate 94 82 Respiratory Rate 18 16 Blood Pressure 114/71 116/60 Pulse Oximetry 99 98 BMI result Body Mass Index 40.5 Labs Results: 01/11/22 20:20 01/13/22 07:50 Medications Medications Current Medications Acetaminophen (Acetaminophen 325 Mg Tablet) 650 mg PO Q6H PRN PRN Reason: Headache/Pain Mild Scale (1-3) Al Hydroxide/Mg Hydroxide (Magnesium Hydrox/Alum Hydrox 30 Ml Oral.Susp) 30 ml PO Q6H PRN PRN Reason: Heartburn/Nausea Artificial Tears (Artificial Tears 15 Ml Drops) 2 drop EYE-BOTH Q4H PRN PRN Reason: Dry Eyes Last Admin: 01/16/22 22:08 Dose: 2 drop Documented by: Ascorbic Acid (Ascorbic Acid 500 Mg Tablet) 500 mg PO DAILY [facility] Last Admin: 01/17/22 08:00 Dose: 500 mg Documented by: Docusate Sodium (Docusate Sodium 100 Mg Capsule) 100 mg PO BID [facility] Last Admin: 01/17/22 08:00 Dose: 100 mg Documented by: Duloxetine HCl (Duloxetine Hcl 30 Mg Capsule.) 90 mg PO DAILY [facility] Last Admin: 01/17/22 08:00 Dose: 90 mg Documented by: Gabapentin (Gabapentin 100 Mg Capsule) 200 mg PO TID [facility] Last Admin: 01/17/22 08:00 Dose: 200 mg Documented by: Hydroxychloroquine Sulfate (Hydroxychloroquine Sulfate 200 Mg Tablet) 200 mg PO BEDTIME [facility] Last Admin: 01/16/22 22:03 Dose: 200 mg Documented by: Hydroxyzine HCl (Hydroxyzine Hcl 25 Mg Tablet) 25 mg PO Q6H PRN PRN Reason: Anxiety Last Admin: 01/16/22 22:03 Dose: 25 mg Documented by: Ibuprofen (Ibuprofen 800 Mg Tablet) 800 mg PO Q8H PRN PRN Reason: Pain, Moderate (Pain Scale 4-6 Loratadine (Loratadine 10 Mg Tablet) 10 mg PO DAILY [facility] Last Admin: 01/17/22 08:00 Dose: 10 mg Documented by: Lorazepam (Lorazepam 0.5 Mg Tablet) 0.5 mg PO Q4H PRN PRN Reason: Anxiety Last Admin: 01/16/22 22:03 Dose: 0.5 mg Documented by: Magnesium Hydroxide (Milk Of Magnesia 30 Ml Oral.Susp) 30 ml PO DAILY PRN PRN Reason: Constipation Last Admin: 01/15/22 09:21 Dose: 30 ml Documented by: Patient Own Medication ( Monolaurin 500 Mg) 2 each PO BID [facility] Last Admin: 01/17/22 08:04 Dose: 2 each Documented by: Patient Own Medication (Milk Thistle 175 Mg) 2 each PO BID [facility] Last Admin: 01/17/22 08:04 Dose: 2 each Documented by: Promethazine HCl (Promethazine Hcl 25 Mg Tablet) 25 mg PO Q6H PRN PRN Reason: Nausea Last Admin: 01/15/22 15:45 Dose: 25 mg Documented by: Spironolactone (Spironolactone 25 Mg Tablet) 50 mg PO BID@0900,1700 [facility]; Protocol Last Admin: 01/17/22 08:00 Dose: 50 mg Documented by: Sumatriptan Succinate (Sumatriptan Succinate 50 Mg Tablet) 50 mg PO DAILY MRX1 PRN PRN Reason: Migraine Headache Last Admin: 01/14/22 14:01 Dose: 50 mg Documented by: Trazodone HCl (Trazodone Hcl 50 Mg Tablet) 50 mg PO BEDTIME [facility] Last Admin: 01/16/22 22:03 Dose: 50 mg Documented by: Vitamin D (Cholecalciferol (Vitamin D3) 25 Mcg Tablet) 125 mcg PO DAILY [facility] Last Admin: 01/17/22 07:59 Dose: 125 mcg Documented by: Zinc Sulfate (Zinc Sulfate 220 Mg Capsule) 220 mg PO DAILY [facility] Last Admin: 01/17/22 08:00 Dose: 220 mg Documented by: Allergies Allergies Allergy/AdvReac Type Severity Reaction Status Date / Time dog dander Allergy Facial Verified 01/12/22 17:04 Swelling grass pollen AdvReac Sneezing Verified 01/12/22 17:04 latex AdvReac Rash Verified 01/11/22 22:39 mold AdvReac Sneezing Verified 01/12/22 17:04 raw tomat Allergy Intermediate Blister Uncoded 01/12/22 17:01 Assessment & Plan Assessment & Plan (1) MDD (major depressive disorder), recurrent episode, moderate: Status: Acute Code(s): F33.1 - Major depressive disorder, recurrent, moderate Plan Ms. Barakat is a 36 year-old woman with hx of MDD, Lupus and Sjorden who was brought via EMS to [facility] [place] [facility] after she went to urgent care reporting increase depression and suicidal ideation in context of multiple stressors including argument with partner, work related stress and fatigued due to medical conditions. This is her first inpatient psychiatric admission. We discussed risks, benefits and alternative treatment options. Pt agreed to increase cymbalta to 90mg po daily. PLAN 1. Admit to M3, CV, 15 min checks for safety 2. Increase cymbalta to 90mg po daily, ativan prn for anxiety. 3. Obtain collateral information 4. Aftercare planning. 01/13- continue cymbalta 90 daily, trazodone 50mg po qhs, ativan prn. 01/14 continue current medications, d/c for 01/18. 01/15: Continue current regimen with discontinuation of Zofran and a trial of Phenergan and starting Colace 01/16: Continue current regimen and plans. Attempting to address constipation more aggressively 01/17 continue with current regimen and plan I spent minutes with the patient and/or on the patient floor today, greater than?50% of which was spent counseling/coordinating care. Patient educated on: medication risk/benefits Informed Consent: understands Reason for contiued inpatient stay Substantial Risk for: rapid decompensation
[2022-01-17 18:00] VITALS: BP 118/75; PULSE 99; RESP 18; TEMP 36.7; O2SAT 99
[2022-01-17] MEDS: LORazepam 0.5 MG TABLET PO ×2 (18:41→22:36)
[2022-01-17] MEDS: Hydroxychloroquine Sulfate 200 MG TABLET PO (22:37)
[2022-01-17] MEDS: traZODone HCL 50 MG TABLET PO (22:40)
[2022-01-18] MEDS: Ascorbic Acid 500 MG TABLET PO (08:30)
[2022-01-18] MEDS: DULoxetine HCl 30 MG CAPSULE.DR 90 MG PO (08:30)
[2022-01-18] MEDS: Gabapentin 100 MG CAPSULE 200 MG PO (08:30)
[2022-01-18] MEDS: Cholecalciferol (Vitamin D3) 25 MCG TABLET 125 MCG PO (08:30)
[2022-01-18] MEDS: Loratadine 10 MG TABLET PO (08:30)
[2022-01-18] MEDS: Zinc Sulfate 220 MG CAPSULE PO (08:31)
[2022-01-18] MEDS: Spironolactone 25 MG TABLET 50 MG PO (08:31)
[2022-01-18] MEDS: Docusate Sodium 100 MG CAPSULE PO (08:31)
[2022-01-18 08:46] VITALS: BP 130/74; PULSE 110; TEMP 36.5; O2SAT 98
--- NOTE | 2022-01-18 10:51 | PM.PSYDC ---
DS: Providers Provider Date of Service: 01/18/22 Date of admission: 01/12/22 12:43 Primary care physician: Irene Jasso NP DS: Diagnosis Discharge Diagnosis (1) MDD (major depressive disorder), recurrent episode, moderate: Status: Acute DS: Medications Discharge Medications Home Medications: Home Medications Medication Instructions Recorded Confirmed clindamycin phosphate 1 % topical TOPICAL BID 01/11/22 gel diclofenac sodium 1 % topical gel 2 g TOPICAL QID PRN 01/11/22 01/11/22 gabapentin 100 mg capsule 2 cap PO TID 01/11/22 01/11/22 hydroxychloroquine 200 mg tablet 1 tab PO DAILY 01/11/22 01/11/22 lactic acid 1.8 %-citric ac 1 1 appful VAGINAL DAILY PRN 01/11/22 01/11/22 %-potassium bitartate 0.4 % vaginal gel (Phexxi) rizatriptan 10 mg tablet mg PO PRN 01/11/22 spironolactone 50 mg tablet 1 tab PO BID 01/11/22 01/11/22 Previous Rx's Medication Instructions Recorded duloxetine 30 mg capsule,delayed 90 mg PO DAILY 30 Days #90 cap 01/18/22 release trazodone 50 mg tablet 50 mg PO BEDTIME 30 Days #30 tab 01/18/22 Mental Status Exam Mental Status Exam Narrative: Pt is alert and oriented; behavior is cooperative, friendly; patient is not in distress; dressed in casual attire with adequate hygiene; mood is described as anxiety is pretty high but in an energizing good high way not an overwhelming high; poor eye contact due to pt's wearing sunglasses indoors; Speech is normal rate, volume and prosody and not pressured; no psychomotor agitation/retardation present; thought process is organized and goal directed; Thought content is on tx; otherwise pertinent to relevant topics and without any delusional content, paranoid ideations or grandiosity; denies any SI/HI/AVH; intermittent urges to superficially self harm at baseline but better today. There is no evidence of perceptual disturbance. Patients insight and judgment are adequate for discharge. Data Data Completed and Pending Completed studies during hospitalization [Text1]: 01/11/22 01/11/22 01/11/22 20:01 20:01 20:01 WBC RBC Hgb Hct MCV MCH MCHC RDW Plt Count MPV Immature Gran % (Auto) Neut % (Auto) Lymph % (Auto) [place] % (Auto) Eos % (Auto) Baso % (Auto) Lymph # (Auto) [place] # (Auto) Eos # (Auto) Baso # (Auto) Abs Immat Gran (auto) Absolute Neuts (auto) Absolute Nucleated RBC Nucleated RBC % (auto) Sodium Potassium Chloride Carbon Dioxide Anion Gap BUN Creatinine Estim Creat Clear Calc Estimated GFR Random Glucose Fasting Glucose Estimat Average Glucose Hemoglobin A1c % Calcium Total Bilirubin AST ALT Alkaline Phosphatase Total Protein Albumin Triglycerides Cholesterol LDL Cholesterol, Calc HDL Cholesterol Vitamin B12 Folate TSH Urine Test NEGATIVE Urine Opiates Screen Not Detected Urine Fentanyl Screen Not Detected Ur Barbiturates Screen Not Detected Ur Phencyclidine Scrn Not Detected Ur Amphetamines Screen Not Detected U Benzodiazepines Scrn Not Detected Urine Cocaine Screen Not Detected U Marijuana (THC) Screen Not Detected Ethyl Alcohol COVID-19 ([facility]) Negative COVID-19 Clin Com See Note 01/11/22 01/11/22 01/11/22 20:20 20:20 20:20 WBC 13.2 H RBC 4.52 Hgb 13.8 Hct 40.6 MCV 89.8 MCH 30.5 MCHC 34.0 RDW 12.6 Plt Count 297 MPV 8.9 L Immature Gran % (Auto) 0.7 H Neut % (Auto) 68.2 Lymph % (Auto) 23.7 [place] % (Auto) 5.9 Eos % (Auto) 1.0 Baso % (Auto) 0.5 Lymph # (Auto) 3.1 [place] # (Auto) 0.8 Eos # (Auto) 0.1 Baso # (Auto) 0.1 Abs Immat Gran (auto) 0.09 H Absolute Neuts (auto) 9.0 H Absolute Nucleated RBC 0.000 Nucleated RBC % (auto) 0.0 Sodium 139 Potassium 4.8 Chloride 102 Carbon Dioxide 28 Anion Gap 14 BUN 7 L Creatinine 0.78 Estim Creat Clear Calc 112.0 Estimated GFR > 60 Random Glucose 93 Fasting Glucose Estimat Average Glucose Hemoglobin A1c % Calcium 9.7 Total Bilirubin 0.6 AST 21 ALT 29 Alkaline Phosphatase 133 H Total Protein 7.3 Albumin 4.1 Triglycerides Cholesterol LDL Cholesterol, Calc HDL Cholesterol Vitamin B12 Folate TSH Urine Test Urine Opiates Screen Urine Fentanyl Screen Ur Barbiturates Screen Ur Phencyclidine Scrn Ur Amphetamines Screen U Benzodiazepines Scrn Urine Cocaine Screen U Marijuana (THC) Screen Ethyl Alcohol < 10 COVID-19 ([facility]) COVID-19 Clin Com 01/13/22 01/13/22 01/13/22 07:50 07:50 07:50 WBC RBC Hgb Hct MCV MCH MCHC RDW Plt Count MPV Immature Gran % (Auto) Neut % (Auto) Lymph % (Auto) [place] % (Auto) Eos % (Auto) Baso % (Auto) Lymph # (Auto) [place] # (Auto) Eos # (Auto) Baso # (Auto) Abs Immat Gran (auto) Absolute Neuts (auto) Absolute Nucleated RBC Nucleated RBC % (auto) Sodium 137 Potassium 4.7 Chloride 102 Carbon Dioxide 25 Anion Gap 15 BUN 13 D Creatinine 0.80 Estim Creat Clear Calc 109.2 Estimated GFR > 60 Random Glucose Fasting Glucose 106 H Estimat Average Glucose 103 Hemoglobin A1c % 5.2 Calcium 9.9 Total Bilirubin 0.8 AST 19 ALT 30 Alkaline Phosphatase 132 H Total Protein 7.1 Albumin 4.1 Triglycerides 137 Cholesterol 169 LDL Cholesterol, Calc 101 HDL Cholesterol 41 Vitamin B12 > 2000 H Folate 5.0 TSH 0.93 Urine Test Urine Opiates Screen Urine Fentanyl Screen Ur Barbiturates Screen Ur Phencyclidine Scrn Ur Amphetamines Screen U Benzodiazepines Scrn Urine Cocaine Screen U Marijuana (THC) Screen Ethyl Alcohol COVID-19 ([facility]) COVID-19 Clin Com DS: Summary Hospital Course Hospital Course: per 01/12 admission note: Ms. Barakat is a 36 year-old woman? with hx of autoimmunune condition (lupus and sjorden) and MDD who initially presented to urgent care reporting increased depression, suicidal ideation and was transported on section 12 to [facility]. In the ED, Blank reports increased depression due to multiple stressors including stress at work complicated by physically feeling more fatigued and tired at work, recent argument with partner who lives in [place] and pt sees once a month. Utox was negative. On the unit, Ms. Barakat reports that she moved to [employer] for work leaving partner behind in [place] about one year ago. Maia reports she has struggled with depression on and off for several years. She reports one suicide attempt back in 2018 when in college but reports that she did not disclose to anyone. Pt reports although her father suffers from depression as well she grew up in family that does not believe in mental illness, where depression is seen as character flow and she is expected to snap out of it. 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 very fatigued related to autoimmune conditions. She reports to make matter worse her partner, Raheem came to visit her and they had an argument related to partner wanting to try cocaine. Pt endorses feeling worthless, hopeless, overwhelmed, lonely at times. She reports passive suicidal ideation but denies any plan or intent to hurt herself. Past Psychiatric History: Inpatient: none prior OP: none Past trials: gabapentin, cymbalta Suicide attempt: 2018 cutting wrist 01/13: Pt reports sleeping better last night, which was a concern she had prior to coming to hospital. She reports having migraine for which she takes triptan (also has neuro stimulator implanted). Pt reports feeling less overwhelmed but still very tearful, worried about current situation with work and her partner. Pt denies SI/HI. No VH/AH. light sensitivity s/s maye, went to few groups this morning but later went to her room to rest due to migraine. 01/14: Pt with brighter affect. She reports she slept well. She has had more migraines and light bothers her but overall feeling less overwhelmed. She denies SI/HI. She hopes to be discharged next Monday. Pt has been visible in the unit, has attended assigned groups- tolerating increase in cymbalta for depression. 01/15: Patient was seen and discussed in rounds today.? Records and plans were reviewed.? She has been visible, attending groups.? Note to suicidal ideations but fleeting thoughts of .? She continues to feel depressed with flat affect.? She also states that the Zofran has not been effective for her nausea which she gets in association with her migraines and would like to be switched to Phenergan which I ordered at 25 mg q.6 hours p.r.n..? She also has been constipated and Colace 100 mg b.i.d. was ordered.? No other changes were made today 01/16: Patient was seen and discussed in rounds today.? She has been mostly visible and doing better.? Continues to have some anxiety and depression.? Eating and sleeping okay.? She states that her nausea is much better with the medication change 2 promethazine.? She continues to be constipated and took Mag citrate today.? No other changes today 01/17: Patient reports that she has a little better and she feels that trazodone has been helping her sleep.? She says she did not have any nightmares last night.? Patient continues to have bad anxiety but says they hydroxyzine and Ativan have been helping.? Today she denies any overwhelming urges to self-harm which she attributes to pushing herself to stay busy coloring and sitting in the milieu.? Discussed medications and treatment and since patient's Duloxetine was recently increased, she agrees to continue with current medication regimen to see if it continues to provide increased benefit Precis: Ms. Barakat is a 36 year-old woman with hx of MDD, Lupus and Sjorden who was brought via EMS to [facility] after she went to urgent care reporting increase depression and suicidal ideation in context of multiple stressors including argument with partner, work related stress and fatigued due to medical conditions. This is her first inpatient psychiatric admission. We discussed risks, benefits and alternative treatment options. Pt agreed to increase cymbalta to 90mg po daily. Increased cymbalta to 90mg po daily, ativan prn for anxiety. 01/13- continue cymbalta 90 daily, trazodone 50mg po qhs, ativan prn. 01/14 continue current medications, d/c for 01/18. 01/15:? Continue current regimen with discontinuation of Zofran and a trial of Phenergan and starting Colace 01/16: Continue current regimen and plans.? Attempting to address constipation more aggressively 01/17 continue with current regimen and plan 01/18: no change in presentation. discharged home. Time Spent with Patient Time attestation: Total time spent providing and/or coordinating discharge services: Time spent: Greater than 30 minutes Discharge Plan Discharge Patient Disposition: Home, Self-Care Discharge Diagnosis: Major Depressive Disorder, Recurrent Referrals: Tiny Khan (Therapy) [Other] - 01/21/22 12:00 pm (IN OFFICE APPOINTMENT) Darcie Tucker (Psychiatry) [Other] - 02/15/22 11:00 am (TELEHEALTH APPOINTMENT -Please check your email the day of your appointment for the zoom link. If you do not receive it, please call the number listed above. ) Darcie Garrett (Psychiatry) [Other] - 03/16/22 11:20 am (TELEHEALTH APPOINTMENT -Please check your email the day of your appointment for the zoom link. If you do not receive it, please call the number listed above. ) Irene Jasso, JUDD [Primary Care Provider] - 1 Week (Provider would call pt for follow up appt ) Discharge Medications: New trazodone 50 mg Tablet 50 mg PO BEDTIME 30 Days Qty: 30 0RF duloxetine 30 mg Capsule,Delayed Release(Dr/Ec) 90 mg PO DAILY 30 Days Qty: 90 0RF Continued clindamycin phosphate 1 % gel TOPICAL BID 0RF diclofenac sodium 1 % gel 2 g topical QID PRN (Reason: pain) 0RF gabapentin 100 mg capsule 2 cap PO TID 0RF hydroxychloroquine 200 mg tablet 1 tab PO DAILY 0RF Phexxi 1.8-1-0.4 % gel 1 appful vaginal DAILY PRN (Reason: control) 0RF rizatriptan 10 mg tablet PO PRN (Reason: Headache) 0RF spironolactone 50 mg tablet 1 tab PO BID 0RF Discontinued duloxetine 30 mg capsule,delayed release(DR/EC) 1 cap PO BID 0RF Discharge Orders: Discharge Order (Routine); Ordered 01/18/22 Ordered By: Lizandro Benoit Diet: advance to usual diet Activity on Discharge: As tolerated Stand Alone Forms: Patient Portal Discharge page, Community Support Care Plan Goals: remain safe and stable in the outpatient treatment setting Health Concerns: none Plan of Treatment: take medications as prescribed, attend appointments as scheduled Assessment: not at imminent risk of harm to self or others Discharge Date/Time: 01/18/22 11:38
== END 2022-01-18 11:38 | disposition home or self-care (01) | DRG 885 ==
LOC: HO.ED 22:49 → HO.PADLT16 01-12 13:09
PROVIDERS: Nurse Practitioner Family; Admitting Provider Social Worker; Emergency Provider Emergency Medicine Emergency Medical Services; PCP Nurse Practitioner Family; Visit Provider Social Worker
DX: F33.1 Major depressive disorder, recurrent, moderate (principal); R45.851 Suicidal ideations; M35.00 Sjogren syndrome, unspecified; M32.9 Systemic lupus erythematosus, unspecified; L73.2 Hidradenitis suppurativa; Z20.822 Contact with and (suspected) exposure to COVID-19; Z91.040 Latex allergy status; Z79.899 Other long term (current) drug therapy
CPT/HCPCS: 36415; 80053; 80061; 80307; 81025; 82077; 82607; 82746; 83036; 84443; 85025; 87635; 93005; 99285